=== PATIENT | male | born 1960 | race Caucasian/White ===

== ENCOUNTER 2020-05-30 11:00 | Emergency (ER) | payer BC, SELFPAY ==
[2020-05-30] VITALS (11 sets, daily range): BP systolic 184–199; BP diastolic 94–100; PULSE 57–68; RESP 12–28; TEMP 36; O2SAT 95–98; BMI 32.5
--- NOTE | 2020-05-30 12:19 | ECG_ITS ---
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 Measurements Intervals [place] Rate: 65 P: 60 [place]: 175 QRS: -26 QRSD: 93 T: 62 QT: 448 QTc: 468 Interpretive Statements SINUS RHYTHM POSSIBLE LEFT ATRIAL ENLARGEMENT [-0.1mV P WAVE IN V1/V2] BORDERLINE LEFT AXIS DEVIATION [QRS AXIS < -20] No previous ECG available for comparison Electronically Signed On 05-30-2020 20:32:48 CDT by Triston Yun M.D. [id number] f
--- NOTE | 2020-05-30 12:20 | XR_ITS ---
WS: [id number] PORTABLE CHEST HISTORY: epigastric pain,, soa COMPARISON: None available. Lungs are clear and well expanded. No pleural effusion or pneumothorax. Cardiac size: Normal. Mediastinum/Aorta: Normal mediastinum. No osseous abnormality seen. XR/XR chest 1V portable [id number] IMPRESSION: Unremarkable portable chest.
--- NOTE | 2020-05-30 12:23 | W.ED.ABDPA2 ---
HPI - Abdominal Pain General: Chief Complaint: Abdominal Pain Stated Complaint: ABD PAIN Time Seen by Provider: 05/30/20 12:01 Source: patient, family and RN notes reviewed History of Present Illness: HPI narrative: 59-year-old male with epigastric pain that he is unable to describe 10 out of 10 nonradiating that started at 645 this morning. He was a urgent care prior to coming to the ER and states that the nurse practitioner there thought he was passing a gallstone?. Patient complains of nausea, no difficulty urinating. Normal bowel movements. Denies chest pain cough or fever. Nothing makes the pain better or worse. No history of abdominal surgeries. Associated Symptoms: Reports nausea; Denies change in bowel habits, chills, dysuria and fever(s) Review of Systems General: Reports: 10 or more systems reviewed and unremarkable except in HPI and below Const: Denies: fever(s) or chills Eyes: Denies: change in vision ENMT: Denies: throat pain Card: Denies: chest pain Resp: Denies: dyspnea GI: Reports: abdominal pain and nausea; Denies: change in bowel habits : Denies: dysuria Musc: Denies: muscle weakness Skin/Breast: Denies: rash Neuro: Denies: headache(s) Psych: Denies: hopelessness or suicidal ideation Endo: Denies: polyuria [place]/Lymph: Denies: easy bruising or easy bleeding All/Imm: Denies: urticaria Physical Exam Const: COMMON NORMALS: patient oriented x3, alert and well nourished OTHER: Appears very uncomfortable secondary to pain HENMT: COMMON NORMALS: normocephalic and Normal external nose present HEAD & SCALP: normocephalic NOSE: Normal external nose present MOUTH: no trismus Eye: COMMON NORMALS: EOMs intact bilaterally and conjunctivae normal CONJUNCTIVA: Yes conjunctivae normal Neck/C-Spine: COMMON NORMALS: full ROM, no lymphadenopathy and supple CERVICAL SPINE: Yes cervical ROM normal Lymph: LYMPHATIC: no lymphadenopathy noted Resp: COMMON NORMALS: normal respiratory effort, No retractions, No use of accessory muscles and clear to auscultation bilaterally EFFORT & INSPECTION: Yes able to speak in complete sentences AUSCULTATION: clear to auscultation bilaterally Cardio: COMMON NORMALS: regular rate and regular rhythm RATE: regular rate RHYTHM: regular rhythm GI: COMMON NORMALS: no masses INSPECTION: Yes normal to inspection AUSCULTATION: Yes Hypoactive bowel sounds present PALPATION: Yes Firmness to palpation present (GI) Back/Pelvis: OTHER: Normal range of motion Extremity: GENERAL: Yes normal exam except as noted Neuro: COMMON NORMALS: patient oriented x3 and CN's II-XII intact bilaterally SENSORIUM/ORIENTATION: Yes alert SPEECH: speech normal Psych: COMMON NORMALS: mental status grossly normal Skin: COMMON NORMALS: no rashes or lesions noted GENERAL SKIN EXAM: no rashes or lesions noted Course Vital Signs: Vital signs: Vital Signs Temperature 96.8 F L 05/30/20 15:50 Pulse Rate 62 05/30/20 15:50 Respiratory Rate 12 05/30/20 15:50 Blood Pressure 188/99 05/30/20 15:50 Pulse Oximetry 96 05/30/20 15:50 MDM - Abdominal Pain MDM Narrative: Medical decision making narrative: Discussed with Dr. Downing at [facility]. Wants pt to go through ER. Talked with Dr Cortez at [facility] ER- accepts pt in transfer for CBD stone. Pt has been NPO, pain 4/10 after 2 dilaudid and 50 mcg fentanyl. Lab Data: Attestation: I reviewed the patient's lab results. Labs: Lab Results 05/30/20 05/30/20 05/30/20 Range/Units 12:45 12:45 12:45 WBC 11.0 H (4.0-10.0) 10^3/ uL RBC 5.24 (4.1-5.3) 10^6/u L Hgb 16.0 (11.7-16.6) g/dL Hct 47.7 (42.0-52.0) % MCV 91.0 (80-94) fL MCH 30.5 (28.0-34.0) pg MCHC 33.5 (30.0-36.0) g/dL RDW 13.7 (12.1-15.1) % Plt Count 343 (130-400) 10^3/c mm MPV 9.9 (7.4-10.4) fL Neut % (Auto) 78.7 % Lymph % (Auto) 11.8 % [place] % (Auto) 8.1 % Eos % (Auto) 0.4 % Baso % (Auto) 0.6 % Neut # (Auto) 8.66 H (1.8-7.7) 10^3/u L Lymph # (Auto) 1.3 (0.8-4.8) 10^3/u L [place] # (Auto) 0.9 (0.2-0.9) 10^3/u L Eos # (Auto) 0.0 (0.0-0.8) 10^3/u L Baso # (Auto) 0.1 (0.0-0.1) 10^3/u L Nucleated RBC % (a uto) 0 % Nucleated RBCs # 0.0 /100WBC Sodium 137 (136-145) mmol/L Potassium 3.3 L (3.5-5.1) mmol/L Chloride 100 (98-107) mmol/L Carbon Dioxide 19 L (22-29) mmol/L Anion Gap 21.3 H (5-19) BUN 23 H (6-20) mg/dL Creatinine 1.4 H (0.7-1.2) mg/dL GFR Calculation 51.9 L (90-130) mL/min Glucose 156 H (65-115) mg/dL Calculated Osmolal ity 284 L (285-295) mOsm/k g Calcium 9.9 (8.5-10.5) mg/dL Total Bilirubin 1.2 (0.15-1.2) mg/dL AST 212 H (0-40) U/L ALT 154 H (0-41) U/L Alkaline Phosphata se 79 (40-130) IU/L Troponin T Baselin e 10 (0-15) ng/L Troponin T 120 Min [place] band (0-15) ng/L Delta Troponin T (0-10) ABS# Total Protein 8.5 (6.6-8.7) g/dL Albumin 4.7 (3.5-5.2) g/dL Globulin 3.8 (1.3-4.6) g/dL Lipase 6165 H (13-60) U/L 05/30/20 Range/Units 14:55 WBC (4.0-10.0) 10^3/ uL RBC (4.1-5.3) 10^6/u L Hgb (11.7-16.6) g/dL Hct (42.0-52.0) % MCV (80-94) fL MCH (28.0-34.0) pg MCHC (30.0-36.0) g/dL RDW (12.1-15.1) % Plt Count (130-400) 10^3/c mm MPV (7.4-10.4) fL Neut % (Auto) % Lymph % (Auto) % [place] % (Auto) % Eos % (Auto) % Baso % (Auto) % Neut # (Auto) (1.8-7.7) 10^3/u L Lymph # (Auto) (0.8-4.8) 10^3/u L [place] # (Auto) (0.2-0.9) 10^3/u L Eos # (Auto) (0.0-0.8) 10^3/u L Baso # (Auto) (0.0-0.1) 10^3/u L Nucleated RBC % (a uto) % Nucleated RBCs # /100WBC Sodium (136-145) mmol/L Potassium (3.5-5.1) mmol/L Chloride (98-107) mmol/L Carbon Dioxide (22-29) mmol/L Anion Gap (5-19) BUN (6-20) mg/dL Creatinine (0.7-1.2) mg/dL GFR Calculation (90-130) mL/min Glucose (65-115) mg/dL Calculated Osmolal ity (285-295) mOsm/k g Calcium (8.5-10.5) mg/dL Total Bilirubin (0.15-1.2) mg/dL AST (0-40) U/L ALT (0-41) U/L Alkaline Phosphata se (40-130) IU/L Troponin T Baselin e (0-15) ng/L Troponin T 120 Min [place] band 9.51 (0-15) ng/L Delta Troponin T -0.49 L (0-10) ABS# Total Protein (6.6-8.7) g/dL Albumin (3.5-5.2) g/dL Globulin (1.3-4.6) g/dL Lipase (13-60) U/L Imaging Data ^: CXR: Radiologist's impression: [place] [id number] XRay Report Signed Patient: Kailash Schneider #: [id number] : 1960Acct#:[id number] Age/Sex: 59 / MADM Date: 05/30/20 Loc: ERRoom/Bed: Attending Dr: Ordering Provider/Ordering MD: Naomi Castañeda MD Date of Service: 05/30/20 Procedure(s): XR chest 1V portable [id number] Accession Number(s): [id number] Report Number: [id number] WS: [id number] PORTABLE CHEST HISTORY: epigastric pain,, soa COMPARISON: None available. Lungs are clear and well expanded. No pleural effusion or pneumothorax. Cardiac size: Normal. Mediastinum/Aorta: Normal mediastinum. No osseous abnormality seen. XR/XR chest 1V portable [id number] IMPRESSION: Unremarkable portable chest. Dictated By:Marisel James DO Signed By:Marisel James DOSigned Date/Time:05/30/20 1257 DD/ 1251 CT Abd/Pel: Radiologist's impression: CBD stone. [address] [place] [address] CT Scan Report Signed Patient: Kailash Schneider #: [id number] : 1960Acct#:[id number] Age/Sex: 59 / MADM Date: 05/30/20 Loc: ERRoom/Bed: Attending Dr: Ordering Provider/Ordering MD: Naomi Castañeda MD Date of Service: 05/30/20 Procedure(s): CT abdomen pelvis wo con [id number] Accession Number(s): [id number] Report Number: [id number] WS: [id number] CT ABDOMEN AND PELVIS NONCONTRAST HISTORY: severe epigastric pain TECHNIQUE: Imaging performed through the abdomen and pelvis. Coronal and sagittal reformats are submitted. All CT scans at [facility] use at least one of these dose optimization techniques: automated exposure control; mA and/or kV adjustment per patient size (includes targeted exams where dose is matched to clinical indication); or iterative reconstruction. DLP: 1553.23 mGy.cm COMPARISON: 04/10/2017 Lower thorax: Stable 3 mm nodule RIGHT middle lobe. Small hiatal hernia. Liver: Mildly heterogeneous appearance to the liver with low attenuation. There are multiple low-attenuation lesions in the liver with the largest measuring 2.6 cm in the LEFT lobe. These were present on the prior study with minimal increase in size consistent with cysts. Common bile duct is very mildly prominent. Gallbladder: Normally distended gallbladder with stones. There are several stones in the neck of the gallbladder. Pancreas: Pancreas is edematous with moderate peripancreatic stranding. Fluid around the pancreatic head. Common bile duct at the pancreatic head is dilated measuring 10 mm. There is a 4 mm stone in the very distal common bile duct. There is an additional calcification which is probably within the lumen of the small bowel. Spleen: Normal. Adrenal glands: Normal. Right kidney: Normal size with no stones, masses or atrophy. Left kidney: Small exophytic 8 mm nodule from the upper pole is indeterminate. Abdominal aorta and IVC are unremarkable. No adenopathy is identified. There is fluid and thickening along the perirenal fascia on the RIGHT associated with the acute inflammatory process involving the pancreas. GI tract: No GI tract obstruction. The appendix is normal. There are a few scattered diverticula. Abdominal wall: Intact. Pelvis: Normal. Osseous structures: Moderate degenerative changes in the lumbar spine. Mild bilateral degenerative joint disease at the hips. Notified Naomi Castañeda MD at 05/30/2020 1:[address]/CT abdomen pelvis wo con [id number] IMPRESSION: 1. Choledocholithiasis with associated moderate acute pancreatitis. 2. 4 mm calcification in the distal common bile duct. There is an additional 4 mm calcification in the lumen of the adjacent small bowel which has probably recently extruded from the common bile duct. 3. Cholelithiasis. 4. Moderate hiatal hernia. 5. Normal appendix. Dictated By:Marisel James DO Signed By:Marisel James DOSigned Date/Time:05/30/20 0197 EKG Data ^: EKG 1: Attestation: I personally reviewed and interpreted this EKG as follows: EKG interpretation date: 05/30/20 EKG interpretation time: 12:38 Interpretation: Sinus rhythm rate 65. Normal [place] interval nonspecific ST changes Discharge Plan Discharge Patient Disposition: Transfer to ED Clinical Impression: Common bile duct stone Condition: Stable Prescriptions: No Action sildenafil 100 mg tablet 100 mg PO DAILY PRN (Reason: Erectile Dysfunction) RF: 0 hydrochlorothiazide 25 mg tablet 25 mg PO DAILY RF: 0 metoprolol succinate 25 mg tablet extended release 24 hr 25 mg PO DAILY RF: 0 timolol maleate 0.5 % drops 1 drp ophthalmic (eye) DAILY RF: 0 losartan 100 mg tablet 100 mg PO DAILY RF: 0 Discharge Date/Time: 05/30/20 15:51 Coding Level of Care Code ED Administration Dean for Chg Fwd Exam Comprehensive
[2020-05-30] MEDS: fentaNYL 50 mcg/mL INJ 2mL IVP (12:28)
[2020-05-30] MEDS: ondansetron 2 mg/ML SDV 2 mL 4 MG IVP (12:28)
[2020-05-30] MEDS: HYDROmorphone 1 mg/mL INJ 1 mL IVP ×4 (12:34→15:47)
[2020-05-30] MEDS: famotidine 20 mg/2 mL INJ IVP (12:43)
[2020-05-30 12:54] LABS: Basophils # 0.1 10^3/uL (0.0-0.1); Basophils % 0.6 %; Eosinophils % 0.4 %; Hematocrit 47.7 % (42.0-52.0); Lymphocytes # 1.3 10^3/uL (0.8-4.8); Lymphocytes % 11.8 %; Mean Corpuscular HGB Conc 33.5 g/dL (30.0-36.0); Mean Corpuscular Hemoglobin 30.5 pg (28.0-34.0); Mean Platelet Volume 9.9 fL (7.4-10.4); Monocytes # 0.9 10^3/uL (0.2-0.9); Monocytes % 8.1 %; Neutrophils # 8.66 10^3/uL (1.8-7.7); Neutrophils % 78.7 %; Nucleated Red Blood Cells % 0 %; Platelet Count 343 10^3/cmm (130-400); Red Blood Count 5.24 10^6/uL (4.1-5.3); Red Cell Distribution Width 13.7 % (12.1-15.1)
--- NOTE | 2020-05-30 12:54 | CT_ITS ---
WS: [id number] CT ABDOMEN AND PELVIS NONCONTRAST HISTORY: severe epigastric pain TECHNIQUE: Imaging performed through the abdomen and pelvis. Coronal and sagittal reformats are submi tted. All CT scans at [facility] use at least one of these dose optimization techniques: automated exposure control; mA and/or kV adjustment per patient size (includes targeted exams where d ose is matched to clinical indication); or iterative reconstruction. DLP: 1553.23 mGy.cm COMPARISON: 04/10/2017 Lower thorax: Stable 3 mm nodule RIGHT middle lobe. Small hiatal hernia. Liver: Mildly heterogeneous appearance to the liver with low attenuation. There are multiple low-atte nuation lesions in the liver with the largest measuring 2.6 cm in the LEFT lobe. These were present o n the prior study with minimal increase in size consistent with cysts. Common bile duct is very mildly prominent. Gallbladder: Normally distended gallbladder with stones. There are several stones in the neck of the gallbladder. Pancreas: Pancreas is edematous with moderate peripancreatic stranding. Fluid around the pancreatic h ead. Common bile duct at the pancreatic head is dilated measuring 10 mm. There is a 4 mm stone in the very distal common bile duct. There is an additional calcification which is probably within the lume n of the small bowel. Spleen: Normal. Adrenal glands: Normal. Right kidney: Normal size with no stones, masses or atrophy. Left kidney: Small exophytic 8 mm nodule from the upper pole is indeterminate. Abdominal aorta and IVC are unremarkable. No adenopathy is identified. There is fluid and thickening along the perirenal fascia on the RIGHT as sociated with the acute inflammatory process involving the pancreas. GI tract: No GI tract obstruction. The appendix is normal. There are a few scattered diverticula. Abdominal wall: Intact. Pelvis: Normal. Osseous structures: Moderate degenerative changes in the lumbar spine. Mild bilateral degenerative jude int disease at the hips. Notified Naomi Castañeda MD at 05/30/2020 1:[address]/CT abdomen pelvis wo con [id number] IMPRESSION: 1. Choledocholithiasis with associated moderate acute pancreatitis. 2. 4 mm calcification in the distal common bile duct. There is an additional 4 mm calcification in the lumen of the adjacent small bowel which has probably r ecently extruded from the common bile duct. 3. Cholelithiasis. 4. Moderate hiatal hernia. 5. Normal appendix.
[2020-05-30] MEDS: lidocaine 2% viscous 15 ML, aluminum-mag hydrox-simethicon 30 ML, sucralfate oral liq 1 GM PO (13:09)
[2020-05-30 13:13] LABS: Troponin(5th) Baseline 10 ng/L (0-15)
[2020-05-30 13:15] LABS: Alanine Aminotransferase 154 U/L (0-41); Albumin Level 4.7 g/dL (3.5-5.2); Alkaline Phosphatase 79 IU/L (40-130); Anion Gap 21.3 (5-19); Aspartate Amino Transferase 212 U/L (0-40); Blood Urea Nitrogen 23 mg/dL (6-20); Calcium 9.9 mg/dL (8.5-10.5); Carbon Dioxide 19 mmol/L (22-29); Chloride 100 mmol/L (98-107); Globulin 3.8 g/dL (1.3-4.6); Glomerular Filtration Rate 51.9 mL/min (90-130); Glucose 156 mg/dL (65-115); Osmolality Calculated 284 mOsm/kg (285-295); Potassium 3.3 mmol/L (3.5-5.1); Sodium 137 mmol/L (136-145); Total Bilirubin 1.2 mg/dL (0.15-1.2); Total Protein 8.5 g/dL (6.6-8.7)
[2020-05-30 14:11] LABS: Lipase 6165 U/L (13-60)
--- NOTE | 2020-05-30 14:19 | ECG_ITS ---
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 Measurements Intervals [place] Rate: 63 P: 48 MA: 182 QRS: -23 QRSD: 94 T: 61 QT: 374 QTc: 384 Interpretive Statements SINUS RHYTHM POSSIBLE LEFT ATRIAL ENLARGEMENT [-0.1mV P WAVE IN V1/V2] BORDERLINE LEFT AXIS DEVIATION [QRS AXIS < -20] POSSIBLE LEFT VENTRICULAR HYPERTROPHY [VOLTAGE CRITERIA PLUS LAE OR QRS WIDENING] NONSPECIFIC ST & T-WAVE ABNORMALITY Compared to ECG 05/30/2020 12:38:37 T-wave abnormality now present Electronically Signed On 05-30-2020 20:39:26 CDT by Triston Yun M.D. [id number]
[2020-05-30 15:31] LABS: Troponin 5 2HR 9.51 ng/L (0-15)
[2020-05-30 15:43] LABS: Troponin 5 2HR Delta -0.49 ABS# (0-10)
== END 2020-05-30 15:51 ==
PROVIDERS: Emergency Provider Emergency Medicine
DX: K80.50 Calculus of bile duct without cholangitis or cholecystitis without obstruction (principal)
CPT/HCPCS: 12345; 36415; 71045; 74176; 80053; 83690; 84484; 85025; 93005; 96374; 96375; 96376; 99283; 99285; J1170; J2405; J3010; J3490

== ENCOUNTER 2021-09-06 07:27 | Outpatient (CLI) | payer BC, SELFPAY | END 2021-09-06 07:28 | disposition home or self-care (01) | LOC: SLEEP 07:28 | PROVIDERS: Visit Provider Clinical Nurse Specialist Adult Health | DX: R06.83 Snoring (principal); G47.33 Obstructive sleep apnea (adult) (pediatric) | CPT/HCPCS: G0399 ==